=== PATIENT | male | born 1970 | race Caucasian/White ===

== ENCOUNTER 2016-08-21 21:11 | Emergency (ER) | payer BC, OTHER ==
[~2016-08-21] VITALS: Ht 188 cm; Wt 107.9 kg
[2016-08-21 21:19] VITALS: TEMP 36.7; Ht 188 cm; Wt 107.9 kg
[2016-08-21] MEDS ORDERED: CEPH500C PO (22:02)
[2016-08-21] MEDS ORDERED: SULF800T23 PO (22:02)
[2016-08-21] MEDS ORDERED: CEPHALEXIN 500MG HOME PACK 1 EA BTL PO ONE (22:15)
[2016-08-21] MEDS ORDERED: SEPTRA DS HOME PACK 1 EA VIAL PO ONE (22:15)
[2016-08-21] MEDS ORDERED: LISI-787 PO (22:17)
[2016-08-21] MEDS ORDERED: PRLSR20 PO (22:17)
[2016-08-21 22:39] VITALS: BP 131/88; PULSE 91; O2SAT 98
--- NOTE | 2016-08-22 06:33 | EMERGENCY ROOM VISIT NOTE ---
History First contact with patient: 21:53 Chief Complaint: WOUND INFECTION Stated Complaint: BOIL/CYST LEAKED, BRUISED AND BLEEDING Nursing Triage Summary: boil on right uipper inner thigh for 1 1/2 weeks states it opened on and has been oozing since. open arae noted no fever area slightly red. History of Present Illness The patient is a 45 year old male who presents to the Emergency Room with complaints of abscess to his right inner thigh that he states has been ongoing for the past 10 days. He states the abscess has had intermittent episodes of opening and draining. He does have some mild redness in the area but is concerned as it has not healed completely. The patient has a reported history of MRSA infection in the past. He is not diabetic. He is not taking anything [id number] for his symptoms. He rates his discomfort a 5/10. Review of Systems More than 10 systems were reviewed and otherwise negative with the exception of history of present illness. Past Medical/Surgical History History of MRSA Family History No pertinent family history Social History Smoking Status: Current Every Day Smoker Housing Status: lives with family Current/Historical Medications Scheduled Cephalexin Monohydrate (Keflex), 500 MG PO TID Lisinopril/Hctz (Zestoretic 20MG/12.5MG), 1 TAB PO BID Omeprazole (Prilosec), 20 MG PO DAILY Sulfa/Trimethoprim (Bactrim Ds 800MG/160MG), 1 TAB PO BID Allergies Coded Allergies: Prednisone (Verified Allergy, Intermediate, Mood changes, 08/21/16) Physical Exam Vital Signs Date Time Temp Pulse Resp B/P (MAP) Pulse Ox O2 Delivery O2 Flow Rate FiO2 08/21/16 22:39 91 20 131/88 98 08/21/16 21:19 36.7 97 18 145/96 96 Room Air Pain Rating (0-10): 2.0 Physical Exam VITALS: Vitals are noted on the nurse's note and reviewed by myself. Vital signs stable. GENERAL: Well-developed, well-nourished, white male, who is in no acute distress and resting comfortably. Patient is cooperative with the examination. HEAD: Normocephalic atraumatic. HEART: Regular rate and rhythm without murmurs gallops or rubs. LUNGS: Clear to auscultation bilaterally without wheezes, rales or rhonchi. No retractions or accessory muscle use. SKIN: The skin was with what appears to be a healing abscess along the medial right proximal thigh. There is a surrounding erythema measuring 3-4 cm around a central dominant lesion that is roughly 1.0 cm in diameter. There is no purulent drainage or evidence of fluctuance. No palpable cording. Medical Decision & Procedures Medications Administered Medications (Trade) Dose Ordered Sig/Lacey Route Start Time Stop Time Status Last Admin Dose Admin Trimethoprim/ Sulfamethoxazole (Sulfameth/ Trimeth Ds 800/ 160MG Home Pack) 1 homepack UD ONCE PO 08/21/16 22:15 08/21/16 22:16 DC 08/21/16 22:32 1 HOMEPACK Cephalexin Monohydrate (Keflex 500MG Home Pack) 1 homepack NOW ONCE PO 08/21/16 22:15 08/21/16 22:16 DC 08/21/16 22:32 1 HOMEPACK ED Course Physical exam and history were performed. Nursing notes and EMR were reviewed. Patient appears to have abscess/cellulitis of the right inner thigh near the groin. The patient will be given a course of Bactrim and Keflex for his symptoms. He is to follow with his primary care physician next few days for recheck of his condition. He is otherwise limited by the emergency department with any new, worsening, or concerning symptoms. The chart was completed utilizing [employer] Speech Voice Recognition Software. Grammatical errors, random word insertions, pronoun errors, and incomplete sentences are an occasional consequence of this system due to software limitations, ambient noise, and hardware issues. Any formal questions or concerns about the content, text, or information contained within the body of this dictation should be directly addressed to the provider for clarification. . Medical Decision Differential diagnosis: Etiologies such as cellulitis, abscess, MRSA infection, DVT, necrotizing fasciitis, dermatitis, drug eruption, as well as others were entertained.. Impression Primary Impression: Abscess or cellulitis of groin Departure Information Dispostion Home / Self-Care Condition GOOD Prescriptions Cephalexin Monohydrate (Keflex) 500 Mg Cap 500 MG PO TID for 10 Days, #30 CAP Prov: Bipin Andino PA-C 08/21/16 Sulfa/Trimethoprim (Bactrim Ds 800MG/160MG) Tab 1 TAB PO BID for 10 Days, #20 TAB Prov: Bipin Andino PA-C 08/21/16 Referrals No Doctor, Assigned Oziel Abrams M.D. (PCP) Forms HOME CARE DOCUMENTATION FORM, IMPORTANT VISIT INFORMATION Patient Instructions My [facility] Additional Instructions You were seen and evaluated today on an emergency basis only. This is not a substitute for, or an effort to provide, complete comprehensive medical care. It is not possible to recognize and treat all injuries or illnesses in a single emergency department visit. For this reason it is recommended that you followup with your primary care physician next week with any ongoing or persistent symptoms. Trimethoprim-Sulfamethoxazole(Bactrim DS): Take one pill twice daily for 10 days for your skin infection. All antibiotics can cause diarrhea. If this occurs and you feel worse or it does not resolve in 1-2 days follow up with your doctor or return to the Emergency Department as this could be signs of serious underlying problems. Any medication can cause an allergic reaction, stop the pills immediately and return to the ER for rash, hives, breathing difficulties, or swelling. Cephalexin(Keflex) 500mg: Take one pill 3 times daily for 10 days for your skin infection. All antibiotics can cause diarrhea. If this occurs and you feel worse or it does not resolve in 1-2 days follow up with your doctor or return to the Emergency Department as this could be signs of serious underlying problems. Any medication can cause an allergic reaction, stop the pills immediately and return to the ER for rash, hives, breathing difficulties, or swelling. You are welcome to return to the emergency department anytime with new, worsening, or concerning symptoms.
== END 2016-08-21 22:40 | disposition home or self-care (01) ==
LOC: C.EDB 21:15 → C.EDC 22:40
DX: L02.214 Cutaneous abscess of groin (principal); F17.200 Nicotine dependence, unspecified, uncomplicated